=== PATIENT | male | born 1975 | race Caucasian/White ===

== ENCOUNTER 2020-05-23 01:43 | Emergency (ER) | payer MEDICAID ==
[~2020-05-23] VITALS: Ht 162.6 cm; Wt 72.6 kg
[2020-05-23 01:45] VITALS: BP_SYST 191
[2020-05-23] MEDS ORDERED: MORPHINE 4 MG/ML INJ. SYRINGE IM ONE (02:15)
[2020-05-23] MEDS ORDERED: DIPH-TET-PERTUS Vaccine 0.5 ML VIAL (ADACEL) I.M. ONE (02:15)
[2020-05-23] MEDS ORDERED: KETOROLAC TROMETHAMINE 60 MG/2 ML VIAL IM ONE (02:15)
[2020-05-23 03:03] VITALS: BP_SYST 191
== END 2020-05-23 03:05 | disposition home or self-care (01) ==
LOC: SED 01:43
DX: S62.336A Displaced fracture of neck of fifth metacarpal bone, right hand, initial encounter for closed fracture (principal); W22.8XXA Striking against or struck by other objects, initial encounter; Y93.89 Activity, other specified; Y92.89 Other specified places as the place of occurrence of the external cause; Y99.8 Other external cause status
CPT/HCPCS: 73130; 90471; 90715; 96372; 99284; J1885; J2270